=== PATIENT | female | born 1930 | race Caucasian/White ===

== ENCOUNTER 2018-09-11 13:47 | Emergency (ER) | payer MEDICARE, BC ==
[~2018-09-11] VITALS: Ht 160 cm; Wt 65.5 kg
[2018-09-11 13:51] VITALS: BP 148/72; PULSE 83; TEMP 98.4
[2018-09-11] MEDS ORDERED: FLEXERIL5 MG PO ×2 (14:09→15:45)
[2018-09-11] MEDS ORDERED: K-DUR 10 MEQ T10 MEQ PO (14:09)
[2018-09-11] MEDS ORDERED: REVLIMID10 MG (14:09)
[2018-09-11] MEDS ORDERED: FLONASEALLERGY NS (14:10)
[2018-09-11] MEDS ORDERED: COUMADIN 5MG5 MG/TAB PO (14:10)
[2018-09-11] MEDS ORDERED: MICARDIS HCT 121 TAB PO (14:10)
[2018-09-11] MEDS ORDERED: LIPITOR 10MG10 MG PO (14:10)
[2018-09-11] MEDS ORDERED: JANTOVEN5 MG PO (14:11)
[2018-09-11] MEDS ORDERED: PROTONIX 40MG T40 MG PO (14:11)
[2018-09-11] MEDS ORDERED: TOPROL XL 25MG25 MG PO (14:11)
[2018-09-11] MEDS ORDERED: MULTIPLE VITAMI1 CAP PO (14:12)
[2018-09-11] MEDS ORDERED: ZOFRAN8 MG PO (14:12)
[2018-09-11] MEDS ORDERED: OMEGA-3 FISH1000 MG PO (14:12)
[2018-09-11] MEDS ORDERED: CALCIUM 600MG+D1 TAB PO (14:13)
[2018-09-11 14:32] LABS: BASO % 1.1 % (0.0-2.0); EOS # 0.1 (0.0-0.7); EOS % 3.4 % (0-4.0); GRAN % 37.1 % (42.2-75.2); HEMOGLOBIN 11.9 g/dl (12.5-16.0); LYMPH % 38.3 % (20.0-51.0); MEAN CELL VOLUME 88 fl (80.0-100.0); MEAN CORPUSCULAR HEMOGLOBIN 29 pg (27.0-31.0); MEAN CORPUSCULAR HGB CONC 33 g/dl (33.0-37.0); MEAN PLATELET VOLUME 9.7 fl (7.4-10.4); MONO # 0.5 (0.1-0.6); MONO % 20.1 % (1.7-9.3); PLATELET COUNT 205 K/mm3 (130-400); RED BLOOD COUNT 4.14 M/mm3 (4.10-5.30); REDCELL DISTRIBUTION WIDTH-CV 16.6 % (11.5-14.5)
[2018-09-11 14:40] LABS: COLLECTION METHOD CLEAN CATCH
[2018-09-11 14:43] LABS: HEMATOCRIT 36.5 % (37.0-47.0)
[2018-09-11 14:48] LABS: INR 3.2 (0.8-3.0); PROTHROMBIN TIME 35.9 SECONDS (9.7-12.8)
[2018-09-11 14:49] LABS: PH 6 (5-8); URINE APPEARANCE Hazy; URINE BACTERIA None Seen /hpf; URINE BILIRUBIN Negative (NEGATIVE); URINE BLOOD 2+ (NEGATIVE); URINE COLOR Yellow; URINE GLUCOSE Negative (NEGATIVE); URINE KETONE Negative (NEGATIVE); URINE LEUKOCYTE ESTERASE 2+ (NEGATIVE); URINE NITRATE Negative (NEGATIVE); URINE PROTEIN(semi-quant) Negative (NEGATIVE); URINE RBC 20-50 /hpf; URINE UROBILINOGEN Negative (NEGATIVE)
[2018-09-11 15:08] LABS: ALBUMIN 3.8 gm/dL (3.5-5.0); BILIRUBIN,TOTAL 0.4 mg/dL (0.0-1.0); CALCIUM 8.7 mg/dL (8.4-10.2); CREATININE, serum 0.67 mg/dL (0.52-1.25); POTASSIUM 3.9 mmol/L (3.4-5.0); TOTAL PROTEIN 7.4 gm/dL (6.4-8.2)
[2018-09-11] MEDS ORDERED: MACROBID 1100 MG/CAP PO (15:22)
== END 2018-09-11 16:15 | disposition home or self-care (01) ==
LOC: COL.ER 13:47
PROVIDERS: Family Medicine
DX: N30.00 Acute cystitis without hematuria (principal); M43.6 Torticollis; C90.00 Multiple myeloma not having achieved remission; D72.819 Decreased white blood cell count, unspecified; Z79.01 Long term (current) use of anticoagulants; Z79.51 Long term (current) use of inhaled steroids

== ENCOUNTER 2019-01-01 17:48 | Emergency (ER) | payer MEDICARE, BC ==
[~2019-01-01] VITALS: Ht 160 cm; Wt 66.4 kg
[~2019-01-01 17:48] MED LIST: CALCIUM 600MG+D1 TAB PO; COUMADIN 5MG5 MG/TAB PO; FLEXERIL5 MG PO; FLONASEALLERGY NS; JANTOVEN5 MG PO; K-DUR 10 MEQ T10 MEQ PO; LIPITOR 10MG10 MG PO; MACROBID 1100 MG/CAP PO; MICARDIS HCT 121 TAB PO; MULTIPLE VITAMI1 CAP PO; OMEGA-3 FISH1000 MG PO; PROTONIX 40MG T40 MG PO; REVLIMID10 MG; TOPROL XL 25MG25 MG PO; ZOFRAN8 MG PO
[2019-01-01 18:01] VITALS: BP 161/72; TEMP 97.3
[2019-01-01 19:23] LABS: COLLECTION METHOD CLEAN CATCH
[2019-01-01 19:32] LABS: PH 7 (5-8); SQUAMOUS EPITHELIAL 0-2 /hpf; URINE APPEARANCE Clear; URINE BACTERIA Rare /hpf; URINE BILIRUBIN Negative (NEGATIVE); URINE BLOOD 2+ (NEGATIVE); URINE COLOR Yellow; URINE GLUCOSE Negative (NEGATIVE); URINE KETONE Negative (NEGATIVE); URINE LEUKOCYTE ESTERASE Trace (NEGATIVE); URINE NITRATE Negative (NEGATIVE); URINE PROTEIN(semi-quant) Negative (NEGATIVE); URINE UROBILINOGEN Negative (NEGATIVE)
[2019-01-01 19:41] LABS: BASO % 0.8 % (0.0-2.0); EOS # 0.1 (0.0-0.7); EOS % 3.1 % (0-4.0); GRAN # 1.4 (1.4-6.5); GRAN % 36.6 % (42.2-75.2); HEMOGLOBIN 11.2 g/dl (12.5-16.0); LYMPH # 1.6 (1.2-3.4); LYMPH % 41.9 % (20.0-51.0); MEAN CELL VOLUME 89 fl (80.0-100.0); MEAN CORPUSCULAR HEMOGLOBIN 30 pg (27.0-31.0); MEAN CORPUSCULAR HGB CONC 33 g/dl (33.0-37.0); MEAN PLATELET VOLUME 10.6 fl (7.4-10.4); MONO # 0.7 (0.1-0.6); MONO % 17.3 % (1.7-9.3); PLATELET COUNT 162 K/mm3 (130-400); RED BLOOD COUNT 3.77 M/mm3 (4.10-5.30); REDCELL DISTRIBUTION WIDTH-CV 15.6 % (11.5-14.5)
[2019-01-01 19:44] LABS: HEMATOCRIT 33.7 % (37.0-47.0)
[2019-01-01 19:54] LABS: ALBUMIN 3.9 gm/dL (3.5-5.0); BILIRUBIN,TOTAL 0.9 mg/dL (0.0-1.0); CALCIUM 9.2 mg/dL (8.4-10.2); CREATININE, serum 0.62 (0.52-1.25); POTASSIUM 3.7 mmol/L (3.4-5.0); TOTAL PROTEIN 7.3 gm/dL (6.4-8.2)
[2019-01-01 21:20] VITALS: PULSE 88
== END 2019-01-01 21:22 | disposition home or self-care (01) ==
LOC: COL.ER 17:48
PROVIDERS: Emergency Medicine
DX: C90.01 Multiple myeloma in remission (principal); R10.9 Unspecified abdominal pain; R07.81 Pleurodynia; R31.9 Hematuria, unspecified; Z98.890 Other specified postprocedural states; Z79.01 Long term (current) use of anticoagulants